=== PATIENT | male | born 2000 | race Caucasian/White ===

== ENCOUNTER 2020-10-08 18:26 | Emergency (ER) | payer OTHER ==
[~2020-10-08 18:26] MED LIST: IBUPROFEN800 MG PO; PERCOCET 5-3251 EACH PO
[2020-10-08] MEDS ORDERED: CYCLOBENZAPRINE10 MG PO (20:47)
== END 2020-10-08 20:47 | disposition home or self-care (01) ==
LOC: FER 18:26
DX: S06.0X9A Concussion with loss of consciousness of unspecified duration, initial encounter (principal); M62.838 Other muscle spasm; F17.210 Nicotine dependence, cigarettes, uncomplicated; W10.9XXA Fall (on) (from) unspecified stairs and steps, initial encounter; Y92.009 Unspecified place in unspecified non-institutional (private) residence as the place of occurrence of the external cause
CPT/HCPCS: 70450; 72125

== ENCOUNTER 2020-10-26 05:26 | Emergency (ER) | payer OTHER ==
[~2020-10-26 05:26] MED LIST changes: +CYCLOBENZAPRINE10 MG PO
[2020-10-26 05:52] LABS: BASOPHIL 0.4 % (0-2); EOSINOPHIL 0.2 % (0-5); HCT 46.4 % (42.0-52.0); HGB 16.5 g/dl (13.2-18.0); LYMPHOCYTE 16.6 % (15-48); MCH 31.2 pg (25.0-31.0); MCHC 35.6 g/dL (32.0-36.0); MCV 87.7 fL (78.0-100.0); MONOCYTE 11.4 % (0-12); MPV 8.4 fL (6.0-9.5); NEUTROPHIL 70.9 % (41-80); NRBC 0; PLT 439 K/uL (150-400); RBC 5.29 M/uL (4.70-6.00); RDW 12.2 % (11.5-14.0); WBC 19.5 K/uL (4.0-10.5)
[2020-10-26 06:09] LABS: BUN/CREAT RATIO (CALC) 11.6 RATIO; C-REACTIVE PROTEIN 2.3 mg/dL (<=0.90); CREATININE 0.95 mg/dL (0.67-1.17); POTASSIUM 3.4 mmol/L (3.5-5.1)
[2020-10-26 06:50] LABS: LACTIC ACID 1.2 mmol/L (0.4-1.9)
[2020-10-26] MEDS ORDERED: IBUPROFEN800 MG PO (06:57)
[2020-10-26] MEDS ORDERED: VIBRAMYCIN100 MG PO (06:57)
[2020-10-26] MEDS ORDERED: PERCOCET 5-3251 EACH PO (07:04)
== END 2020-10-26 09:35 | disposition home or self-care (01) ==
LOC: FER 05:26
PROVIDERS: Emergency Medicine Emergency Medical Services
DX: S93.612A Sprain of tarsal ligament of left foot, initial encounter (principal); L03.116 Cellulitis of left lower limb; T43.621A Poisoning by amphetamines, accidental (unintentional), initial encounter; F17.210 Nicotine dependence, cigarettes, uncomplicated; X58.XXXA Exposure to other specified factors, initial encounter
CPT/HCPCS: 36415; 73610; 73630; 80048; 83605; 84550; 85025; 86140; 87040; 93005; J1885; J2060; J3370; J7050; J7120

== ENCOUNTER 2020-12-13 04:27 | Emergency (ER) | payer OTHER ==
[~2020-12-13 04:27] MED LIST changes: +VIBRAMYCIN100 MG PO
== END 2020-12-13 05:26 | disposition home or self-care (01) ==
LOC: FER 04:27
DX: R07.89 Other chest pain (principal); R00.0 Tachycardia, unspecified; F17.210 Nicotine dependence, cigarettes, uncomplicated
CPT/HCPCS: 93005

== ENCOUNTER 2020-12-25 02:35 | Emergency (ER) | payer OTHER ==
[2020-12-25 02:59] LABS: BILIRUBIN NEGATIVE (NEGATIVE); BLOOD NEGATIVE Ery/uL (NEGATIVE); CLARITY CLEAR (CLEAR); COLOR YELLOW (YELLOW); GLUCOSE (U) NORMAL (NORMAL); LEUKOCYTES NEGATIVE Leu/uL (NEGATIVE); NITRITE NEGATIVE (NEGATIVE); PROTEIN NEGATIVE (NEGATIVE); UROBILINOGEN 0.2 mg/dL (0.2-1.0); pH 6.5 (5.0-9.0)
[2020-12-25 03:04] LABS: AMPHETAMINES POSITIVE (NEGATIVE); BARBITURATES NEGATIVE (NEGATIVE); ECSTASY (MDMA) NEGATIVE (NEGATIVE); MARIJUANA (THC) POSITIVE (NEGATIVE); METHADONE NEGATIVE (NEGATIVE); OPIATES NEGATIVE (NEGATIVE); OXYCODONE NEGATIVE (NEGATIVE)
[2020-12-25 03:37] LABS: ALKALINE PHOSHATASE 102 U/L (46-116); ALT 41 U/L (16-63); AST 17 U/L (15-37); BILIRUBIN - TOTAL 0.1 mg/dL (0.2-1.0); BUN 11 mg/dL (7-18); BUN/CREAT RATIO (CALC) 10.4 RATIO; CHLORIDE 104 mmol/L (98-107); CO2 (BICARBONATE) 26 mmol/L (21-32); CREATININE 1.06 mg/dL (0.67-1.17); GLOBULIN (CALCULATION) 3.4 g/dL; GLUCOSE 96 mg/dL (74-106); TOTAL PROTEIN 7.4 g/dL (6.4-8.2)
[2020-12-25 03:38] LABS: ACETAMINOPHEN (TYLENOL) < 2.0 ug/mL (10.0-30.0)
[2020-12-25] MEDS ORDERED: CEPHALEXIN500 M1 PO (16:47)
[2020-12-25] MEDS ORDERED: KEFLEX250 MG PO (16:54)
[2020-12-26] MEDS ORDERED: ANUCORT-HC25 MG PR (21:28)
== END 2020-12-25 08:00 | disposition home or self-care (01) ==
LOC: FER 02:35
PROVIDERS: Emergency Medicine
DX: F19.10 Other psychoactive substance abuse, uncomplicated (principal); F17.200 Nicotine dependence, unspecified, uncomplicated
CPT/HCPCS: 36415; 80053; 80305; 81003; 99283; G0480

== ENCOUNTER 2020-12-25 13:31 | Emergency (ER) | payer OTHER ==
[2020-12-25] MEDS ORDERED: CEPHALEXIN500 M1 PO (16:47)
[2020-12-25] MEDS ORDERED: KEFLEX250 MG PO (16:54)
[2020-12-26] MEDS ORDERED: ANUCORT-HC25 MG PR (21:28)
== END 2020-12-25 17:05 | disposition home or self-care (01) ==
LOC: FER 13:31
DX: S61.411A Laceration without foreign body of right hand, initial encounter (principal); F17.210 Nicotine dependence, cigarettes, uncomplicated; W25.XXXA Contact with sharp glass, initial encounter; Y92.009 Unspecified place in unspecified non-institutional (private) residence as the place of occurrence of the external cause
CPT/HCPCS: 73130

== ENCOUNTER 2020-12-26 20:23 | Emergency (ER) | payer OTHER ==
[~2020-12-26 20:23] MED LIST changes: +CEPHALEXIN500 M1 PO; +KEFLEX250 MG PO
[2020-12-26] MEDS ORDERED: ANUCORT-HC25 MG PR (21:28)
[2020-12-27] MEDS ORDERED: BACTROBAN NASAL1 GM (17:31)
[2020-12-27] MEDS ORDERED: DOXYCYCLINE HY100 M2 PO (17:31)
== END 2020-12-26 21:30 | disposition home or self-care (01) ==
LOC: FER 20:23
DX: S30.0XXA Contusion of lower back and pelvis, initial encounter (principal); S50.812A Abrasion of left forearm, initial encounter; S50.811A Abrasion of right forearm, initial encounter; W22.09XA Striking against other stationary object, initial encounter
CPT/HCPCS: 73130; J1885

== ENCOUNTER 2020-12-27 16:21 | Emergency (ER) | payer OTHER ==
[~2020-12-27 16:21] MED LIST changes: +ANUCORT-HC25 MG PR
[2020-12-27] MEDS ORDERED: DOXYCYCLINE HY100 M2 PO (17:31)
[2020-12-27] MEDS ORDERED: BACTROBAN NASAL1 GM (17:31)
== END 2020-12-27 17:57 | disposition home or self-care (01) ==
LOC: FER 16:21
DX: S51.812A Laceration without foreign body of left forearm, initial encounter (principal); F17.200 Nicotine dependence, unspecified, uncomplicated; W22.09XA Striking against other stationary object, initial encounter; Y92.009 Unspecified place in unspecified non-institutional (private) residence as the place of occurrence of the external cause

== ENCOUNTER 2021-01-05 06:44 | Emergency (ER) | payer OTHER ==
[~2021-01-05 06:44] MED LIST changes: +BACTROBAN NASAL1 GM; +DOXYCYCLINE HY100 M2 PO
== END 2021-01-05 08:10 | disposition home or self-care (01) ==
LOC: FER 06:44
DX: K12.1 Other forms of stomatitis (principal)
CPT/HCPCS: 99283